=== PATIENT | female | born 1965 | race Hispanic/Latino ===

== ENCOUNTER 2017-08-26 15:05 | Emergency (ER) | payer MEDICAID ==
[2017-08-26 15:09] VITALS: BMI 17.4
[2017-08-26 15:10] VITALS: TEMP 97.5
--- NOTE | 2017-08-26 15:53 | C.PDOC ---
History Of Present Illness Patient is a 51 y/o female who presents to the ED with complaints of dental pain and swelling for the last 2 days. Patient was seen with dentist yesterday and was prescribed antibiotics; patient was unable to fill prescription due to insurance reasons. Patient denies any fever or difficulty breathing or swallowing. No other complaints at this time. Time Seen by Provider: 08/26/17 15:24 Chief Complaint (Nursing): Abnormal Skin Integrity History Per: Patient History/Exam Limitations: no limitations Onset/Duration Of Symptoms: Days (symptoms began two days ago) Current Symptoms Are (Timing): Still Present Past Medical History Vital Signs: Last Vital Signs Temp 97.5 F L 08/26/17 15:09 Pulse 82 08/26/17 16:20 Resp 20 08/26/17 16:20 BP 120/75 08/26/17 16:20 Pulse Ox 98 08/26/17 16:20 - Social History Hx Alcohol Use: No Hx Substance Use: No - Immunization History Hx Tetanus Toxoid Vaccination: No Hx Influenza Vaccination: No Hx Pneumococcal Vaccination: No ED Course And Treatment O2 Sat by Pulse Oximetry: 100 Disposition - Disposition Disposition: HOME/ ROUTINE Disposition Time: 15:54 Condition: STABLE Additional Instructions: Follow up with your dentist in 2-5 days for further evaluation. Take medications as prescribed. Return to the emergency department at any time if symptoms persist or worsen. Prescriptions: Clindamycin [Cleocin] 300 mg PO Q6 #28 cap Ibuprofen [Motrin] 400 mg PO Q6 PRN #20 tab PRN Reason: Fever Instructions: Dental Abscess (ED) Forms: [employer] (Nepali)
[2017-08-26 16:21] VITALS: BP 120/75; PULSE 82; RESP 20
[2017-08-26 17:55] VITALS: O2SAT 100
--- NOTE | 2017-08-26 17:59 | C.PDOC ---
History Of Present Illness Patient is a 51 y/o female who presents to the ED with complaints of dental pain and swelling for the last two days. Patient was seen at the dentist yesterday and was given antibiotics; patient states she is unable to fill prescription due to insurance purposes. Patient denies fever, difficulty breathing or swallowing. No other complaints at this time. Time Seen by Provider: 08/26/17 15:24 Chief Complaint (Nursing): Abnormal Skin Integrity History Per: Patient History/Exam Limitations: no limitations Onset/Duration Of Symptoms: Days (symptoms began two days ago) Current Symptoms Are (Timing): Still Present Recent travel outside of the [place]: No Past Medical History Reviewed: Historical Data, Nursing Documentation, Vital Signs Vital Signs: Last Vital Signs Temp 97.5 F L 08/26/17 15:09 Pulse 82 08/26/17 16:20 Resp 20 08/26/17 16:20 BP 120/75 08/26/17 16:20 Pulse Ox 100 08/26/17 18:02 - Medical History PMH: No Chronic Diseases Surgical History: No Surg Hx Family History: States: Unknown Family Hx - Social History Hx Alcohol Use: No Hx Substance Use: No - Immunization History Hx Tetanus Toxoid Vaccination: No Hx Influenza Vaccination: No Hx Pneumococcal Vaccination: No Review Of Systems Constitutional: Negative for: Fever ENT: Positive for: Mouth Pain, Mouth Swelling, Other (no difficulty swallowing) Respiratory: Positive for: Other (no difficulty breathing) Physical Exam - Physical Exam Appears: Well, Non-toxic Skin: Normal Color, Warm, Dry Head: Atraumatic, Normacephalic Eye(s): bilateral: Normal Inspection, EOMI Nose: Normal Oral Mucosa: Moist Teeth: No Normal Dentition (poor dentition) Gingiva: Erythema, Swelling (right mandible), Tender (right mandible ), Other ( no fluctuance ) Throat: Normal, No Erythema, No Exudate, No Drooling Neck: Normal ROM, Supple Chest: Symmetrical Cardiovascular: Rhythm Regular Respiratory: Normal Breath Sounds, No Accessory Muscle Use Neurological/Psych: Oriented x3, Normal Speech, Normal Cognition, Other (no focal deficits) ED Course And Treatment O2 Sat by Pulse Oximetry: 100 Progress Note: Plan: Motrin and Cleocin administered. Patient advised to follow up with dentist in 1-2 days. Disposition - Disposition Disposition: HOME/ ROUTINE Disposition Time: 16:00 Condition: STABLE Additional Instructions: Follow up with your dentist in 2-5 days for further evaluation. Take medications as prescribed. Return to the emergency department at any time if symptoms persist or worsen. Prescriptions: Clindamycin [Cleocin] 300 mg PO Q6 #28 cap Ibuprofen [Motrin] 400 mg PO Q6 PRN #20 tab PRN Reason: Fever Instructions: Dental Abscess (ED) Forms: [employer] (Amharic) - Clinical Impression Clinical Impression: Dental abscess - Scribe Statement The provider has reviewed the documentation as recorded by the Scribe Peg Calhoun All medical record entries made by the Susyibe were at my direction and personally dictated by me. I have reviewed the chart and agree that the record accurately reflects my personal performance of the history, physical exam, medical decision making, and the department course for this patient. I have also personally directed, reviewed, and agree with the discharge instructions and disposition.
== END 2017-08-26 16:40 | disposition home or self-care (01) ==
LOC: C.ER 15:05
DX: K04.7 Periapical abscess without sinus (principal)

== ENCOUNTER 2018-12-18 10:45 | Emergency (ER) | payer MEDICAID ==
[2018-12-18 10:56] VITALS: BMI 16.6
[2018-12-18] MEDS ORDERED: Tetanus/Diphtheria Toxoids 0.5 ml Syringe IM ONE ×2 (11:32→12:41)
[2018-12-18] MEDS ORDERED: Lidocaine 2% Inj (20ml) INFIL ONE (11:33)
--- NOTE | 2018-12-18 11:39 | C.PDOC ---
History Of Present Illness 53 year old female presents to the ED for evaluation of facial contusion, head injury after she tripped and fell prior to arrival. Patient states she fell onto her face and sustained lacerations to her lower lip and chin. Pt c/o some pain over Right TMJ now, worse with open mouth. Otherwise, Pt denies loss of consciousness, syncope, severe headache, dizziness, nausea, vomiting, visual changes, focal deficits, trismus, drooling, neck pain, CP, SOB, dyspnea, abd. pain, V/D, denies obvious deformity, weakness, sensory or vascular deficits to B/L UEs and LEs. Ambulatory in ED with stable gait, no t in any apparent distress. Time Seen by Provider: 12/18/18 11:17 Chief Complaint (Nursing): Abnormal Skin Integrity History Per: Patient History/Exam Limitations: no limitations Onset/Duration Of Symptoms: Hrs Current Symptoms Are (Timing): Still Present Location Of Injury: Anterior: Face (lower lip, chin ) Quality Of Symptoms: Painful Additional History Per: Patient Past Medical History Reviewed: Historical Data, Nursing Documentation, Vital Signs Vital Signs: Last Vital Signs Temp 98.5 F 12/18/18 10:55 Pulse 100 H 12/18/18 10:55 Resp 20 12/18/18 10:55 BP 116/82 12/18/18 10:55 Pulse Ox 94 L 12/18/18 10:55 - Medical History PMH: No Chronic Diseases Surgical History: No Surg Hx Family History: States: Unknown Family Hx - Social History Hx Alcohol Use: No Hx Substance Use: No - Immunization History Hx Tetanus Toxoid Vaccination: No Hx Influenza Vaccination: No Hx Pneumococcal Vaccination: No Review Of Systems Gastrointestinal: Negative for: Nausea, Vomiting Skin: Positive for: Lesions (lacerations to lower lip and chin ) Neurological: Negative for: Weakness, Numbness, Headache, Dizziness, Other (loss of consciousness, syncope ) Physical Exam - Physical Exam Appears: Non-toxic, No Acute Distress Skin: Normal Color, Warm, Dry Head: Normacephalic, No Tenderness, No Swelling, Laceration (3cm irregular laceration to chin, no palpable deformity, no wound FB, no active bleeding) Eye(s): bilateral: PERRL, EOMI Ear(s): Bilateral: Normal Nose: No Flaring, No Deformity, No Tenderness, No Septal Hematoma Oral Mucosa: Moist, No Drooling, No Trismus Tongue: No Laceration Lips: Laceration (3cm to lower lip, along the bulmaro border. 3cm, L-shaped laceration to inner lower lip. no active bleeding ) Teeth: Dentures (full upper nad lower), No Avulsed Neck: Normal ROM, No Midline Cervical Tenderness, No Paracervical Tenderness, No Step Off Deformity, Supple Chest: Symmetrical, No Deformity, No Tenderness Cardiovascular: Rhythm Regular, No Murmur, No JVD Respiratory: No Decreased Breath Sounds, No Accessory Muscle Use, No Stridor, No Wheezing Gastrointestinal/Abdominal: Soft, No Tenderness, No Distention, No Guarding Back: No Vertebral Tenderness, No Paraspinal Tenderness Extremity: Normal ROM, No Tenderness, No Deformity Neurological/Psych: Oriented x3, Normal Speech, Normal Cognition, Normal Motor, Normal Sensation, Normal Reflexes ED Course And Treatment O2 Sat by Pulse Oximetry: 94 Pulse Ox Interpretation: Normal - CT Scan/US CT max/face Other Rad Studies (CT/US): Radiology Report Reviewed CT/US Interpretation: ccession No. : [id number]. Patient Name / ID : CHANDNI ROBERT / [id number]. Exam Date : 12/18/2018 12:55:34 ( Approved ). Study Comment : Sex / Age : F / 53Y. Creator : Ritu Hinojosa. Dictator : Elizabeth Whyte MD. Cigarette Seller : Human Resources Compliance Manager : Elizabeth Whyte MD. Approver2 : Report Date : 12/18/2018 13:06:12. My Comment : . Date of service: 12/18/2018. CT maxillofacial bones without IV contrast. Indication: Right acial injury s/p fall. Comparison: None available. Technique: Axial computed tomography images were obtained of the maxillofacial bones without the use of intravenous contrast. Coronal and sagittal reformatted images were generated and reviewed. This CT exam was performed using 1 or more of the following dose reduction techniques: Automated exposure control, adjustment of the MAA and/or kV according to patient size, and/or use of iterative reconstruction technique. Radiation dose: Total exam DLP = 855.14 mGy-cm. Findings: Acute comminuted fracture involving the junction of the right base of the mandibular condyle and vertical ramus. The facial bones appear otherwise unremarkable without additional acute displaced fracture identified. The orbits appear unremarkable. The temporomandibular joints appear located. The mastoid air cells appear clear. The paranasal sinuses appear clear. The visualized brain appears unremarkable. Impression: Acute comminuted fracture at the junction of the base of the right mandibular condyle and vertical ramus. CT head w/o contrast Other Rad Studies (CT/US): Radiology Report Reviewed CT/US Interpretation: no acute findings Progress Note: Mandible XR ordered and reviewed. Tylenol PO and Tetanus IM given. Pt remained tsable during the ED evaluation. Imaging review, (+) Right madindibular fx. Case discussed with [facility] and transfer arranged to ED. Case discussed with ED attending DR. Chaney and transfer ED-to-ED arranged. While pt was waiting for transfer, changed her mind and wish to go home now. Risk of leaving AMA discussed with pt, including sudden . Pt understand and agrees with risk. Pt advised to F/U with [facility] for further eval and tx or return to ED to complete eval/transfer. Pt understand and agrees with plan. Against Medical Advice - AMA Patient Left Against Medical Advice: The patient declines admission to the hospital and wishes to leave the Emergency Department. This action is against my medical advice. This decision was made with informed refusal. The patient was told that admission to the hospital is necessary. Explanation of the reasons why were discussed. The risks of leaving were explained to the patient and include, but are not limited to, worsening of known or currently unknown conditions, permanent disability and from undiagnosed or untreated conditions. The patient has the capacity to make this informed decision and understands my explanation of the current medical problem and risks of leaving. The patient voluntarily accepts these risks and signed an AMA form documenting our conversation. The patient was given the opportunity to ask questions and reconsider. The patient was encouraged to return to the Emergency Department at any time for fu rther care. Laceration - Laceration Repair chin Wound Length (In cm): 3 Description Of Wound: Irregular Wound Cleansed With: Betadine, Sterile Saline Anesthesia: Lidocaine 2% Wound Examination: Irrigated With Saline, No FB With Wound Exploration Wound Closure: Suture (five) Suture Technique And Material Used: Nylon (5-0) Wound Complexity: Simple lip, along bulmaro border Wound Length (In cm): 3 Description Of Wound: Linear Wound Cleansed With: Sterile Saline Anesthesia: Lidocaine 2% Wound Examination: Irrigated With Saline, No FB With Wound Exploration Wound Closure: Suture (four ) Suture Technique And Material Used: Chromic (5-0) Wound Complexity: Simple inner lip Wound Length (In cm): 3 Description Of Wound: Irregular (L-shaped ) Wound Cleansed With: Sterile Saline Anesthesia: Lidocaine 2% Wound Examination: Irrigated With Saline, No FB With Wound Exploration Wound Closure: Suture (four ) Suture Technique And Material Used: Chromic (5-0) Wound Complexity: Simple Disposition - Disposition Disposition: AGAINST MEDICAL ADVICE Disposition Time: 15:30 Condition: STABLE Additional Instructions: Observe 48 hours for nay sign of head injury-intractable headache, vomiting, visual changes,m any other new changes-return to ED immediately for re- evaluation. Please, follow up with Jeffery/maxillary facial surgery at [facility] as soon as possible for further treatment/surgery/splint Take medication for pain as need Soft food only, avoid hard, chewy food Suture removal in 5-7 days return to ED immediately to complete evaluation Prescriptions: Amoxicillin/Clavulanate [Augmentin 875 MG-125 MG] 1 tab PO BID #14 tab traMADol [Ultram] 50 mg PO TID #7 tab Forms: [employer] (Algerian) - Clinical Impression Clinical Impression: Mandibular fracture, Laceration of chin, Laceration of lip - PA / CROZE CUTTER HELPER / Resident Statement MD/DO has reviewed & agrees with the documentation as recorded. - Scribe Statement The provider has reviewed the documentation as recorded by the Scribe (Devika Simmons) All medical record entries made by the Scribe were at my direction and personally dictated by me. I have reviewed the chart and agree that the record accurately reflects my personal performance of the history, physical exam, medical decision making, and the department course for this patient. I have also personally directed, reviewed, and agree with the discharge instructions and disposition.
[2018-12-18] MEDS ORDERED: Amoxicillin-Clav 875-125 mg Tab PO STA (12:34)
--- NOTE | 2018-12-18 13:34 | CT ---
Date of service: 12/18/2018 CT maxillofacial bones without IV contrast Indication: Right acial injury s/p fall Comparison: None available Technique: Axial computed tomography images were obtained of the maxillofacial bones without the use of intravenous contrast. Coronal and sagittal reformatted images were generated and reviewed. This CT exam was performed using 1 or more of the following dose reduction techniques: Automated exposure control, adjustment of the MAA and/or kV according to patient size, and/or use of iterative reconstruction technique. Radiation dose: Total exam DLP = 855.14 mGy-cm. Findings: Acute comminuted fracture involving the junction of the right base of the mandibular condyle and vertical ramus. The facial bones appear otherwise unremarkable without additional acute displaced fracture identified. The orbits appear unremarkable. The temporomandibular joints appear located. The mastoid air cells appear clear. The paranasal sinuses appear clear. The visualized brain appears unremarkable. Impression: Acute comminuted fracture at the junction of the base of the right mandibular condyle and vertical ramus.
[2018-12-18 13:53] VITALS: RESP 16
[2018-12-18 15:09] VITALS: BP 133/84; PULSE 81; TEMP 98.1
--- NOTE | 2018-12-18 15:14 | CT ---
Date of service: 12/18/2018 PROCEDURE: CT HEAD WITHOUT CONTRAST. HISTORY: headcache s/p fall COMPARISON: None available. TECHNIQUE: Axial computed tomography images were obtained through the head/brain without intravenous contrast. Radiation dose: Total exam DLP = 1036.63 mGy-cm. This CT exam was performed using one or more of the following dose reduction techniques: Automated exposure control, adjustment of the mA and/or kV according to patient size, and/or use of iterative reconstruction technique. FINDINGS: HEMORRHAGE: No intracranial hemorrhage. BRAIN: No mass effect or edema. Gaston-white matter differentiation appears intact. Please note that MRI with diffusion imaging is more sensitive in the detection of acute ischemic event. VENTRICLES: No hydrocephalus. CALVARIUM: Unremarkable. PARANASAL SINUSES: Unremarkable as visualized. No significant inflammatory changes. MASTOID AIR CELLS: Unremarkable as visualized. No inflammatory changes. OTHER FINDINGS: None. IMPRESSION: No acute intracranial pathology identified.
[2018-12-18 15:33] VITALS: O2SAT 94
[2018-12-18] MEDS ORDERED: Amoxicillin-Clav 875-125 mg Tab PO ONE (15:45)
== END 2018-12-18 16:01 | disposition left against medical advice (07) ==
LOC: C.ER 10:45
DX: S01.511A Laceration without foreign body of lip, initial encounter (principal); S01.81XA Laceration without foreign body of other part of head, initial encounter; S02.69XA Fracture of mandible of other specified site, initial encounter for closed fracture; W01.0XXA Fall on same level from slipping, tripping and stumbling without subsequent striking against object, initial encounter